=== PATIENT | female | born 1995 | race Caucasian/White ===

== ENCOUNTER 2021-05-27 17:19 | Emergency (ER) | payer SELFPAY ==
[~2021-05-27] VITALS: Ht 175.3 cm; Wt 62.6 kg
--- NOTE | 2021-05-27 17:34 | NUR ---
25 Y FEMALE WITH C/O OF R THUMB PAIN, BRUSING, AND SWELLING. PT STATED SHE SLAMMED HER THUMB IN A CAR DOOR RESULTING IN THE INJURY. OBIVIOUS SIGNS OF BRUISING AND SWELLING NOTED. PT IS ABLE TO MOVE HER THUMB, BUT IT CAUSES PAIN. PMH: DENIES NKA
--- NOTE | 2021-05-27 17:36 | NUR ---
MARLON MAYO BEDSIDE EVALUATING PT
--- NOTE | 2021-05-27 17:40 | NUR ---
PT TAKEN TO XRAY VIA W/C
--- NOTE | 2021-05-27 17:55 | NUR ---
PT RETURNED TO BED 9 FROM XRAY VIA W/C
[2021-05-27] MEDS: KETOROLAC 30 MG/ML VIAL IM ONE (17:56)
[2021-05-27] MEDS ORDERED: NAPR-54 PO (18:11)
== END 2021-05-27 18:16 | disposition home or self-care (01) ==
LOC: MED 17:19
DX: S60.111A Contusion of right thumb with damage to nail, initial encounter (principal); X58.XXXA Exposure to other specified factors, initial encounter; Y93.89 Activity, other specified; Y92.89 Other specified places as the place of occurrence of the external cause; Y99.8 Other external cause status
CPT/HCPCS: 11760; 73140; 96372; 99284; J1885